=== PATIENT | male | born 1945 | race Hispanic/Latino ===

== ENCOUNTER 2018-05-27 13:31 | Outpatient (CLI) | payer BC | END 2018-05-27 13:32 | disposition home or self-care (01) | LOC: DTY/OP 13:31 | PROVIDERS: ATTEND Family Medicine | DX: I12.9 Hypertensive chronic kidney disease with stage 1 through stage 4 chronic kidney disease, or unspecified chronic kidney disease (principal); N18.3 Chronic kidney disease, stage 3 (moderate) | CPT/HCPCS: 97802 ==

== ENCOUNTER 2018-06-24 15:02 | Outpatient (CLI) | payer BC ==
--- NOTE | 2018-06-24 17:39 | CT ---
CT ABDOMEN AND PELVIS WITH CONTRAST: HISTORY: Mid abdominal pain with nausea for weeks. Chronic kidney disease. TECHNIQUE: Multiple contiguous axial images were obtained in a CT of the abdomen and pelvis with contrast. Cont rast was administered p.o. Coronal reformats were performed. FINDINGS: There is a 5.5 cm cyst in the right kidney. The liver, gallbladder, left kidney, adrenal glands, spl een, and pancreas are unremarkable. No free air, free fluid, or stranding changes are seen in the ab domen or pelvis. There are scattered diverticula in the colon. The small bowel is unremarkable. The appendix is norm al. No abdominal or pelvic lymphadenopathy is appreciated. Atherosclerotic calcifications are seen in the aorta. Mild degenerative changes are seen in the spine. The visualized inferior thorax and abdominal wall s oft tissues are unremarkable. IMPRESSION: 1. Diverticulosis. 2. Right renal cyst. 3. No evidence of acute intraabdominal/pelvic abnormality. POS: [facility]
== END 2018-06-24 15:03 | disposition home or self-care (01) ==
LOC: SCSCT 15:02
PROVIDERS: ATTEND Internal Medicine Gastroenterology
DX: R10.9 Unspecified abdominal pain (principal); K57.90 Diverticulosis of intestine, part unspecified, without perforation or abscess without bleeding; N28.1 Cyst of kidney, acquired
CPT/HCPCS: 74177

== ENCOUNTER 2019-05-21 15:15 | Outpatient (CLI) | payer BC ==
--- NOTE | 2019-05-21 15:34 | SJPRAD ---
ANKLE 3 VIEWS ROUTINE RIGHT HISTORY: Injury, right ankle pain FINDINGS: No dislocation is identified. The ankle mortise is maintained. Soft tissue swelling is present. There is a bony density inferior to the medial malleolus suspicious for fracture.
== END 2019-05-21 15:16 | disposition home or self-care (01) ==
LOC: RAD 15:15
PROVIDERS: ATTEND Family Medicine
DX: M25.571 Pain in right ankle and joints of right foot (principal); M79.89 Other specified soft tissue disorders